=== PATIENT | female | born 1970 | race Caucasian/White ===

== ENCOUNTER 2018-08-18 11:47 | Day surgery (SDC) | payer BC ==
--- NOTE | 2018-08-18 07:04 | History and Physical - [facility] ---
CHIEF COMPLAINT/HISTORY OF CHIEF COMPLAINT: This patient presents today with a history of intractable post laminectomy radiculopathy and is here for a spinal infusion trial with Hydromorphone. The primary region of pain is cervical with a upper extremity and upper thoracic extension. The history is multiple cervical spine surgeries and has been referred to this facility for implantation of a pump by way of her neurosurgeon, Dr. Parra. Treatment history has been extensive and all unsuccessful. PAST MEDICAL HISTORY: Hypertension, cardiac arrhythmia, thrombophlebitis, and pseudotumor cerebri with internal cranial shunt. PAST SURGICAL HISTORY: Multiple lumbar and cervical spine surgeries, intracranial surgery with intracranial shunt, hysterectomy, knee surgery, and jaw surgery. EMPLOYMENT STATUS: Disability. MEDICATIONS ON ADMISSION: List to be provided ALLERGIES: FENTANYL. FAMILY/PSYCHOSOCIAL HISTORY: Social history - Noncontributory. Family history - Cardiac disease and hypertension. SYSTEMS REVIEW: The patient seems appropriate in no acute distress. The remainder of the systems review is positive for headaches, degenerative arthritis, depression, and difficulty sleeping. PHYSICAL EXAMINATION: Height is 5'4", weight is 220. Vital signs are not available. HEENT: Within normal limits. LUNGS: Clear. HEART: Rapid and regular. ABDOMEN: Nontender. MUSCULOSKELETAL: Examination of the musculoskeletal system shows the primary pain pattern to be diffusely throughout head and neck. There is an upper extremity component across diffuse multiple dermatomes. Motor and sensory field abnormalities in the upper extremities with sensory abnormalities and motor loss. 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 NEUROLOGIC: Cranial nerves are intact. IMPRESSION: POST CERVICAL LAMINECTOMY SYNDROME, ICD-10 CODE M96.1 WITH RADICULOPATHY, ICD- 10 CODE M54.12. PLAN: The patient is here for the placement of an implanted catheter infusion trial with Hydromorphone for failed cervical spine surgery and intractable pain across neck, shoulders, and arms. The implanted catheter trial will be considered outpatient although an overnight stay will be evaluated. JOB NUMBER: [id number] MTDD
[~2018-08-18 11:47] MED LIST: ACETAMINOPHEN 1,000 MG/100 ML BTL IV ONE; CEFAZOLIN 2 Gram 2 GM/50 ML BAG IVPB ONE; FAMOTIDINE 20MG TABLET PO ONE; HYDROMORPHONE PF 2MG/ML AMP 0.008 MG in 0.9 % SODIUM CHLORIDE 10ML VIA 0.996 ML IV ONE; HYDROMORPHONE PF 2MG/ML AMP 8 MG in 0.9 % SODIUM CHLORIDE 500ML 496 ML IV ONE; MECLIZINE 25 MG TABLET PO ONE; METOCLOPRAMIDE 10 MG TABLET PO ONE
[2018-08-18] MEDS ORDERED: LIDOCAINE 2% MDV (20MG/ML) 20ML VIAL IV ONE (11:48)
[2018-08-18] MEDS ORDERED: BUPIVACAINE 0.5% W/EPI MPF 30 ML VIAL IVP ONE (11:48)
[2018-08-18] MEDS ORDERED: ONDANSETRON HCL IV 4 MG/2 ML VIAL IVP ONE (11:48)
[2018-08-18] MEDS ORDERED: PROPOFOL 10 MG/ML VIAL IV ONE (11:48)
[2018-08-18] MEDS ORDERED: PROMETHAZINE HCL 25 MG/ML VIAL IV ONE (11:48)
[2018-08-18] MEDS ORDERED: LIDOCAINE 1% W/EPI 1:200,000 MPF 30ML SQ ONE (11:48)
[2018-08-18] MEDS ORDERED: HYDROMORPHONE HCL 2 MG/ML VIAL IV ONE (11:48)
[2018-08-18] MEDS ORDERED: MIDAZOLAM HCL 2MG/2ML VIAL IV ONE (11:48)
[2018-08-18] MEDS ORDERED: AL HYDROX/MAG HYDROX 30ML UD PO PRN (16:02)
[2018-08-18] MEDS ORDERED: SENNOSIDES/DOCUSATE SODIUM UD CAPSULE PO PRN ×2 (16:02)
[2018-08-18] MEDS ORDERED: HYDROCODONE/APAP 7.5/325MG TABLET PO PRN ×2 (16:02)
[2018-08-18] MEDS ORDERED: METOCLOPRAMIDE 10 MG TABLET PO PRN (16:02)
[2018-08-18] MEDS ORDERED: DIPHENHYDRAMINE HCL 25 MG CAPSULE PO PRN ×2 (16:02)
[2018-08-18] MEDS ORDERED: OXYCODONE/APAP 10MG-325MG TABLET PO PRN (16:02)
[2018-08-18] MEDS ORDERED: RINGERS SOLUTION,LACTATED 1,000 ML IV SCH (16:02)
[2018-08-18] MEDS ORDERED: NALOXONE 0.4 MG/1 ML VIAL IVP PRN (16:02)
[2018-08-18] MEDS ORDERED: HYDROMORPHONE HCL 2 MG/ML VIAL IM PRN (16:02)
[2018-08-18] MEDS ORDERED: TEMAZEPAM 15 MG CAPSULE PO PRN ×2 (16:02)
[2018-08-18] MEDS ORDERED: ACETAMINOPHEN 325 MG TAB PO PRN ×2 (16:02)
[2018-08-18] MEDS ORDERED: METOCLOPRAMIDE HCL 10 MG/2 ML VIAL IVP PRN (16:02)
[2018-08-18] MEDS ORDERED: DIPHENHYDRAMINE HCL 50 MG/ML VIAL IVP PRN ×2 (16:02)
[2018-08-18] MEDS ORDERED: ALPRAZOLAM 0.25 MG TABLET PO PRN (16:04)
[2018-08-18] MEDS ORDERED: ONDANSETRON 4 MG ODT TABLET SL PRN (16:05)
[2018-08-18] MEDS ORDERED: CYCLOBENZAPRINE 10MG TABLET PO PRN (16:05)
[2018-08-18] MEDS: HYDROMORPHONE HCL 2 MG/ML VIAL IM PRN ×2 (19:28→23:49)
[2018-08-18] MEDS: CEFAZOLIN 2 Gram 2 GM/50 ML BAG IVPB SCH (20:43)
--- NOTE | 2018-08-18 21:53 | Operative Note ---
DATE OF SURGERY: 08/18/2018 PREOPERATIVE DIAGNOSIS: POST CERVICAL LAMINECTOMY RADICULOPATHY, ICD-10 CODE = M96.1 WITH CERVICAL RADICULOPATHY, ICD-CODE = M54.12. SURGERY: 1. FLUOROSCOPIC-GUIDED ACCESS SPINAL SPACE AT L2-3, PLACEMENT OF THIN-WALLED SPINAL CATHETER C7-T1. 2. DIAGNOSTIC MYELOGRAPHY WITH RADIOLOGIC SUPERVISION AND INTERPRETATION. 3. SPINAL BOLUS OF HYDROMORPHONE 0.004 MG INTO SPINAL SPACE. 4. INCISION, SUBCUTANEOUS DISSECTION, AND ANCHORING OF SPINAL CATHETER TO SUPRASPINOUS FASCIA WITH AN ANCHOR AND NONABSORBABLE SUTURE. 5. INCISION, SUBCUTANEOUS DISSECTION, AND CREATION OF SMALL POUCH RIGHT POSTERIOR GLUTEAL MARGIN ULTIMATELY FOR PLACEMENT OF PUMP, A MEDTRONIC PROGRAMMABLE. 6. TUNNELING BETWEEN MIDLINE POUCH AND POSTERIOR GLUTEAL POUCH EXTENDING CATHETER INTO POUCH. 7. INTERFACE SPINAL CATHETER WITH SECOND CATHETER COMPONENT, SECOND CATHETER COMPONENT TUNNELED 6 CM SUPERIOR TO POUCH EXITING THE SKIN. 8. INTERFACE EXTERNAL CATHETER WITH EXTERNAL PUMP SET TO DELIVER HYDROMORPHONE AT 0.08 MG A DAY. 9. CLOSURE OF MIDLINE INCISION WITH VICRYL FOR FASCIA AND RUNNING NYLON FOR SKIN. CLOSURE OF RIGHT POSTERIOR POUCH USING RUNNING NYLON. 10. EPIDURAL BLOOD PATCH ABORTED BECAUSE OF LACK OF ACCESS FROM MULTIPLE LUMBAR LAMINECTOMY AND FUSION. STERILE DRESSING PLACED SECURING CATHETER AND ALL CONNECTIONS UNDER STERILE DRESSING. PATIENT TRANSPORTED TO RECOVERY ROOM FLAT, PILLOW UNDER HEAD AND KNEES. SURGEON: NASIMA ABRAHAM D.O. ANESTHESIA: LOCAL SEDATION. JASKARAN CANELA CRNA. INDICATIONS: This patient presents with a history of an intractable post cervical laminectomy radiculopathy. Due to the failure of all therapies, she is here for an implanted spinal catheter infusion trial with Hydromorphone to determine if the implantation of a permanent system can be of any value in pain control. SURGERY: Intravenous line, vital sign monitoring, IV sedation, prepped and draped, sterile technique. Patient positioned prone. Sterile prep. Sterile technique. Spinal hardware fusion 4-5 and 5-1. Laminectomy 3-4. Spinal access was then identified at L2-3. Skin infiltrated. Using a #20 gauge spinal needle, paramedian approach beveled with a long axis inserted into the spinal space using AP and lateral imaging. Needle advanced into the spinal space on the lateral image. With CSF flow, a thin-walled spinal catheter was advanced and positioned at C7-T1. Diagnostic myelography was performed. The flow characteristics were appropriate confirming catheter position. A bolus of hydromorphone at 0.004 mg given into the spinal space. The skin above and below the needle was infiltrated, incision made, and subcutaneous dissection was conducted to the supraspinous fascia. The needle was removed and the catheter was anchored to the supraspinous fascia with a Medtronic anchor and nonabsorbable suture. CSF was still noted through the catheter and the catheter clamped. At the right flank, a site picked ultimately for the pump, skin infiltrated, incision made, and subcutaneous dissection was conducted to form a small subcutaneous pouch. A tunneling tool was used to carry the spinal catheter into the pouch and then the spinal catheter was interfaced with a second catheter component by way of a connector. This second catheter component was tunneled 6 cm superior from this pouch exiting the skin. The external catheter was then interfaced to an external pump, which was set to deliver Hydromorphone at 0.08 mg a day. The midline incision was then closed with Vicryl for fascia and a running nylon for skin. The posterior pouch was closed with running nylon. An epidural blood patch was considered but ruled out because of the multiple level laminectomy with laminectomy and fusion. The catheter and all connections were then secured under sterile dressing and she was transported to the Recovery Room stable showing no side-effects from the procedure or the sedation. She had full functionality of the extremities. She was kept flat and will stay flat for four hours, slowly elevated for one, will stay overnight for observation and then be considered dischargeable in the morning. DISCHARGE INSTRUCTIONS: 1. The sites are to remain clean and dry. No showering or bathing in any way that would disrupt dressings. If it happens, contact the Clinic. 2. Standard medications resumed including the antibiotic Levaquin, which she will take 500 mg once a day for 14 days. 3. A total of three increases will be scheduled in the office, the first within the next 3 to 5 days. The office will contact the patient at home to set up the increased. All other instructions provided, numbers to contact if problems given. Potential side-effects of spinal opioid of respiratory depression, nausea, vomiting, constipation, urinary retention, lightheadedness, or rash have all been discussed and reviewed. All other instructions provided, numbers to contact if problems given. She will then be discharged. cc: Dr. Tiffany Jesus and Dr. Rob Parra JOB NUMBER: [id number] MTDD
[2018-08-18] MEDS: RINGERS SOLUTION,LACTATED 1,000 ML IV SCH (21:56)
[2018-08-19] MEDS: CEFAZOLIN 2 Gram 2 GM/50 ML BAG IVPB SCH ×3 (05:34→13:04)
[2018-08-19] MEDS: OXYCODONE/APAP 10MG-325MG TABLET PO PRN ×2 (05:39→07:10)
[2018-08-19] MEDS ORDERED: PANTOPRAZOLE SODIUM 40 MG TABLET PO SCH (07:00)
[2018-08-19] MEDS: RINGERS SOLUTION,LACTATED 1,000 ML IV SCH (09:18)
[2018-08-19] MEDS ORDERED: HYDROCHLOROTHIAZIDE 25 MG TABLET PO SCH (10:00)
[2018-08-19] MEDS ORDERED: METOPROLOL SUCC 50 MG TABLET PO SCH (10:00)
[2018-08-19] MEDS ORDERED: POTASSIUM CHLORIDE 10 MEQ TAB PO SCH (10:00)
[2018-08-19] MEDS ORDERED: FLUOXETINE HCL 20 MG CAPSULE PO SCH (10:00)
[2018-08-19] MEDS ORDERED: LOSARTAN POTASSIUM 100 MG TABLET PO SCH (10:00)
--- NOTE | 2018-08-19 14:45 | RADIOLOGY REPORT ---
EXAM: THORACIC SPINE, SINGLE VIEW HISTORY: MEDICATION PAIN PUMP TRIAL. TECHNIQUE: A single portable view of the thoracic spine was performed. Comparison: Intraoperative views from the same date. FINDINGS: Medication infusion pump tubing is present projecting over the spine. The opaque marker is located at the T2 level. Ventriculoperitoneal shunt tubing traverses the thorax. There are no acute osseous abnormality. Post surgical changes are present within the mandible and cervical spine. There are low lung volumes. IMPRESSION: MEDICATION INFUSION PUMP TUBING IN PLACE WITH THE MARKER LOCATED AT THE T2 LEVEL. JOB NUMBER: [id number] MTDD
== END 2018-08-19 14:00 | disposition home or self-care (01) ==
LOC: SUR 11:47 → MEDSURG 16:10 → SUR 08-19 14:00
PROVIDERS: ATTEND Pain Medicine Interventional Pain Medicine
DX: M96.1 Postlaminectomy syndrome, not elsewhere classified (principal); M54.12 Radiculopathy, cervical region; I10 Essential (primary) hypertension; M19.90 Unspecified osteoarthritis, unspecified site
CPT/HCPCS: 62350; 62362; 01936; 94761; 72020; 94760; Q9967; J2405; J1170 ×2; J0690 ×2; J2550; J2765; J7040; J7120

== ENCOUNTER 2018-09-01 13:00 | Day surgery (SDC) | payer BC ==
--- NOTE | 2018-09-01 07:01 | History and Physical - [facility] ---
CHIEF COMPLAINT/HISTORY OF CHIEF COMPLAINT: This patient with an ongoing implanted spinal catheter infusion trial using Hydromorphone has 75+% pain control. Due to the failure of all other therapy and the success of the trial, she presents today for permanent implantation of the catheter and a programmable device. PAST MEDICAL HISTORY: Unchanged. PAST SURGICAL HISTORY: Unchanged. MEDICATIONS ON ADMISSION: List to be provided. ALLERGIES: FENTANYL. FAMILY/PSYCHOSOCIAL HISTORY: Social history - Unchanged. SYSTEMS REVIEW: The patient is appropriate in no acute distress. The remainder of the systems review is positive for headaches, degenerative arthritis, depression and difficulty sleeping. PHYSICAL EXAMINATION: Height is 5'4", weight is 220. No vital signs. HEENT: Within normal limits. LUNGS: Clear. HEART: Rapid and regular. ABDOMEN: Nontender. MUSCULOSKELETAL: Examination of the musculoskeletal system shows the dressings for the implanted catheter trial. The external pump is identified and is fully functional. No exposure of critical components to the device. The primary pain pattern is a post laminectomy radiculopathy and headaches to the upper head , neck, shoulder, arm, hand and fingers. NEUROLOGIC: Cranial nerves are intact. IMPRESSION: 1. POST CERVICAL LAMINECTOMY SYNDROME, ICD-10 CODE M96.1 WITH RADICULOPATHY, ICD-10 CODE M54.12. 2. IMPLANTED SPINAL CATHETER INFUSION TRIAL USING HYDROMORPHONE. PLAN: This patient has 75+% pain control with the implanted catheter trial and wants to move forward to a permanent system. The procedure at this point would be considered outpatient although an overnight stay will be evaluated. JOB NUMBER: [id number] [facility]
[~2018-09-01 13:00] MED LIST changes: +HYDROMORPHONE HCL 0.04 GM in 0.9 % SODIUM CHLORIDE 10ML VIA 20 ML IV ONE; -HYDROMORPHONE PF 2MG/ML AMP 8 MG in 0.9 % SODIUM CHLORIDE 500ML 496 ML IV ONE
[2018-09-01] MEDS ORDERED: BUPIVACAINE 0.5% W/EPI MPF 30 ML VIAL IVP ONE (13:01)
[2018-09-01] MEDS ORDERED: LIDOCAINE 1% W/EPI 1:200,000 MPF 30ML SQ ONE (13:01)
[2018-09-01] MEDS ORDERED: LIDOCAINE 2% MDV (20MG/ML) 20ML VIAL IV ONE (13:01)
[2018-09-01] MEDS ORDERED: ONDANSETRON HCL IV 4 MG/2 ML VIAL IVP ONE (13:01)
[2018-09-01] MEDS ORDERED: PROPOFOL 10 MG/ML VIAL IV ONE (13:01)
[2018-09-01] MEDS ORDERED: MIDAZOLAM HCL 2MG/2ML VIAL IV ONE (13:01)
[2018-09-01] MEDS ORDERED: HYDROMORPHONE HCL 2 MG/ML VIAL IV ONE (13:01)
[2018-09-01] MEDS ORDERED: CEFAZOLIN 1G VIAL IM ONE (13:01)
[2018-09-01] MEDS ORDERED: HYDROMORPHONE HCL 2 MG/ML VIAL IM PRN ×2 (16:44)
[2018-09-01] MEDS ORDERED: OXYCODONE/APAP 10MG-325MG TABLET PO PRN (16:44)
[2018-09-01] MEDS ORDERED: HYDROCODONE/APAP 7.5/325MG TABLET PO PRN ×2 (16:44)
[2018-09-01] MEDS ORDERED: CYCLOBENZAPRINE 10MG TABLET PO PRN (18:15)
[2018-09-01] MEDS ORDERED: PATIENT OWN MED: ALPRAZOLAM 0.5 MG PO PRN (18:15)
[2018-09-01] MEDS: OXYCODONE/APAP 10MG-325MG TABLET PO PRN (21:47)
[2018-09-02] MEDS: OXYCODONE/APAP 10MG-325MG TABLET PO PRN ×2 (04:02→08:02)
[2018-09-02] MEDS ORDERED: PATIENT OWN MED: DEXILANT 60 MG PO SCH (07:00)
[2018-09-02] MEDS ORDERED: PATIENT OWN MED: METOPROLOL SUCCINATE 100 MG PO SCH (10:00)
[2018-09-02] MEDS ORDERED: LOSARTAN PO SCH (10:00)
[2018-09-02] MEDS ORDERED: HCTZ PO SCH (10:00)
[2018-09-02] MEDS ORDERED: MOVANTIK 25 MG PO SCH (10:00)
[2018-09-02] MEDS ORDERED: PATIENT OWN MED: FLUOXETINE 20 MG PO SCH (10:00)
--- NOTE | 2018-09-04 21:01 | Operative Note ---
DATE OF SURGERY: 09/01/2018. PREOPERATIVE DIAGNOSES: 1. POST CERVICAL LAMINECTOMY SYNDROME, ICD-10 CODE = M96.1 WITH CERVICAL RADICULOPATHY, ICD-10 CODE = M54.12. 2. IMPLANTED SPINAL CATHETER INFUSION TRIAL HYDROMORPHONE, CERVICAL. SURGERY: 1. INCISION, SUBCUTANEOUS DISSECTION, AND FORMATION OF SUBCUTANEOUS POUCH AT RIGHT POSTERIOR GLUTEAL MARGIN FOR PLACEMENT OF PUMP IDENTIFIED A MEDTRONIC PROGRAMMABLE, 20 ML 2. REVISION INTERNAL CATHETER, RESECT AND REMOVE EXTERNAL CATHETER, REVISE INTERNAL CATHETER WITH SECOND CATHETER COMPONENT BY WAY OF A CONNECTOR TO INTERFACE TO PUMP. 3. PLACEMENT OF 20 ML PROGRAMMABLE PUMP, MEDTRONIC FILLED WITH HYDROMORPHONE 2 MG PER ML. INTERFACE TO REVISED CATHETER. 4. SECURING OF PUMP INTO POSTERIOR FASCIA POUCH FORMED USING NONABSORBABLE SUTURE, THREE POINTS PUMP EYELETS SECURING PUMP INTO POUCH. 5. PLACEMENT OF CURVED #24 GAUGE DOHERTY NEEDLE INTO ACCESS PORT OF PROGRAMMABLE PUMP, ASPIRATION AND CLEARING CATHETER OF OPIOID AND CSF MIXTURE. 6. DIAGNOSTIC MYELOGRAPHY WITH RADIOLOGIC SUPERVISION AND INTERPRETATION INTO ACCESS PORT CONFIRMING FUNCTIONALITY. 7. CLOSURE OF PUMP POUCH USING STRATAFIX SUTURE, #2-0 FASCIA AND #3-0 SKIN. DERMABOND CLOSURE. 8. PROGRAMMING OF PUMP TO DELIVER BY CONTINUOUS INFUSION HYDROMORPHONE AT 0.16 MG PER DAY. SURGEON: NASIMA ABRAHAM D.O. ANESTHESIA: LOCAL SEDATION. ANESTHESIA PROVIDER: ANGELIC CARRERA CRNA INDICATIONS: This patient presents with a history of intractable post cervical laminectomy radiculopathy. Due to the failure of therapy, an implanted catheter infusion trial cervical was performed with Hydromorphone resulting in 75% pain control. Due to the failure of all therapies and the success of the trial, she is here for permanent implantation. SURGERY: Intravenous line, vital sign monitoring, IV sedation, prepped and draped sterile technique. Dressing removed, the external catheter interfaced to the indwelling catheter at the right posterior gluteal margin, incision infiltrated, incision made, and subcutaneous dissection was conducted to form a pouch of suitable size and depth for the pump identified as a Medtronic 20 mL programmable. With the subcutaneous formation of the pouch, the internal catheter and external catheter interface was identified, clamped, and cut. The external catheter was then removed by pulling away from the incision. The internal catheter was then revised and resected with a second catheter component by way of connector. This catheter component will interface to a pump. A 20 mL programmable Medtronic pump placed onto the field, pre-filled with Hydromorphone 2 mg per mL. The new pump was then interfaced with the revised catheter. Antibiotic irrigation and Bovie for hemostasis. The pump was placed into the pouch and secured to the posterior fascia with nonabsorbable suture, three points pump eyelets. With the pump firmly in the pouch, a curved # 24 gauge Doherty needle was inserted into the access port and 1 mL of catheter contents was aspirated clearing the catheter of opioid and a CSF mixture. Contrast myelogram was then performed through the access port with contrast moving through the pump catheter connection showing all connections appropriately, no leaks, kinks, or bends. The tip of the catheter was identified at T2 with a smooth and linear flow of contrast into the posterior cervical spinal space. Appropriate flow characteristics were identified, no kinks, no abnormal flow. With this confirmation, the pouch was then closed with the pump in the pouch using STRATAFIX suture, #2-0 fascia and #3-0 skin and a Dermabond closure approximating the edges of the wound. The patient was then transported to the Recovery Room stable, no side effects from the procedure or the sedation. When fully awake and alert, complex programming of the pump was performed setting her spinal infusion at 0.16 mg a day. All the alarm values were reset. DISCHARGE INSTRUCTIONS: 1. The site is to remain clean and dry. No showering or bathing in any way that would disrupt dressings. If it happens, contact the Clinic. 2. Standard medications will be resumed including the antibiotic, Levaquin, 500 mg once a day for 14 days. 3. The office to contact the patient in 24 to 48 hours to set up a time in 7 days for us to evaluate the sites. Until then, she is to keep her activities low. She can shower with the Dermabond but not sit in water or a tub. All other instructions provided. Spinal opioid side-effects of respiratory depression, nausea, vomiting, constipation, urinary retention, light headedness or rash have all been discussed and reviewed. She was then discharged. cc: Dr. Jesus and Dr. Rob Parra JOB NUMBER: [id number] [facility]
== END 2018-09-02 09:25 | disposition home or self-care (01) ==
LOC: SUR 13:00 → MEDSURG 16:15 → SUR 09-02 09:25
PROVIDERS: ATTEND Pain Medicine Interventional Pain Medicine
DX: M96.1 Postlaminectomy syndrome, not elsewhere classified (principal); M54.12 Radiculopathy, cervical region; I10 Essential (primary) hypertension; M19.90 Unspecified osteoarthritis, unspecified site; K59.00 Constipation, unspecified; G93.2 Benign intracranial hypertension
CPT/HCPCS: 62350; 62362; 01936; 62367; Q9967; J2405; J1170 ×2; J0690; C1755; C1776

== ENCOUNTER 2019-09-07 05:34 | Day surgery (SDC) | payer BC ==
[2019-09-07] MEDS ORDERED: HYDROMORPHONE HCL 2 MG/ML VIAL IV ONE (05:35)
[2019-09-07] MEDS ORDERED: PROPOFOL 10 MG/ML VIAL IV ONE (05:35)
[2019-09-07] MEDS ORDERED: LIDOCAINE 2% MDV (20MG/ML) 20ML VIAL IV ONE (05:35)
[2019-09-07] MEDS ORDERED: MIDAZOLAM HCL 2MG/2ML VIAL IV ONE (05:35)
[2019-09-07] MEDS ORDERED: RINGERS SOLUTION,LACTATED 1,000 ML IV ONE (06:15)
[2019-09-07] MEDS ORDERED: 0.9 % SODIUM CHLORIDE 10 ML VIAL IJ ONE (07:31)
[2019-09-07] MEDS ORDERED: DEXAMETHASONE PRESERVATIVE FREE 10MG/ML VIAL IM ONE (07:31)
[2019-09-07] MEDS ORDERED: BUPIVACAINE 0.5% W/EPI MPF 30 ML VIAL SQ ONE (07:31)
[2019-09-07] MEDS ORDERED: LIDOCAINE 1% W/EPI 1:200,000 MPF 30ML SQ ONE (07:31)
[2019-09-07] MEDS ORDERED: BUPIVACAINE 0.25% PF (2.5MG/ML) 10ML VIAL IM ONE (07:31)
--- NOTE | 2019-09-07 09:12 | Operative Note - [facility] ---
DATE OF SURGERY: 09/07/2019 PREOPERATIVE DIAGNOSIS: POST LUMBAR LAMINECTOMY SYNDROME, ICD-10 CODE M96.1 WITH LUMBAR RADICULOPATHY, ICD-10 CODE M54.16 AND M54.17. OPERATION: BILATERAL LUMBAR EPIDURAL INJECTION L3-L4. SURGEON: Matthias Soliman D.O. ANESTHESIA: Local sedation. ANESTHESIA PROVIDER: CONSTANCE Bennett CRNA INDICATION: This patient presents with multiple level lumbar spinal fusion L4- L5, L5-S1 and S1. Due to the failure of therapy she is here for an epidural injection. The epidural injury will be approached above the hardware at L3-L4. No access at L4-L5 or L5-S1 is available because of the fusion hardware. PROCEDURE: Intravenous line, vital sign monitoring, IV sedation, prepped and draped, sterile technique. The epidural interspace at L3-L4 was marked bilaterally, skin infiltrated, two separate 17-gauge 5-inch Tuohy needles with loss of resistance, atraumatic. No blood. No CSF. Contrasted epidurogram at each showing the epidural flow characteristics appropriate space. 5 ml of 0.125% Marcaine with Dexamethasone was injected first left and then right. The needles were removed, the back was cleaned, topical antibiotic, and sterile dressing applied. JOB NUMBER: [id number] [facility]
== END 2019-09-07 08:24 | disposition home or self-care (01) ==
LOC: SUR 05:34
PROVIDERS: ATTEND Pain Medicine Interventional Pain Medicine
DX: M96.1 Postlaminectomy syndrome, not elsewhere classified (principal); M54.16 Radiculopathy, lumbar region; M54.17 Radiculopathy, lumbosacral region; I10 Essential (primary) hypertension; Z86.61 Personal history of infections of the central nervous system; F41.9 Anxiety disorder, unspecified
CPT/HCPCS: J7120